=== PATIENT | female | born 1970 | race Caucasian/White ===

== ENCOUNTER → 2017-02-20 08:42 | Outpatient (CLI) | payer BC | END | disposition home or self-care (01) | LOC: D.US 08:42 | DX: E04.1 Nontoxic single thyroid nodule (principal) ==

== ENCOUNTER → 2019-05-16 10:55 | Outpatient (CLI) | payer BC | END | disposition home or self-care (01) | LOC: D.US 10:55 | PROVIDERS: ATTEND Family Medicine | DX: E04.1 Nontoxic single thyroid nodule (principal) ==